=== PATIENT | female | born 1945 | race Caucasian/White ===

== ENCOUNTER 2018-05-16 18:35 | Emergency (ER) | payer OTHER ==
[~2018-05-16] VITALS: Ht 167.6 cm; Wt 59.0 kg
[~2018-05-16 18:35] MED LIST: ACTONEL 35 MG35 M1; ACTONEL PO; ACTONEL30 MG PO; APAP500 PO; ASPIRIN EC81 M1 PO; CALCIUM 500+D1 EAC3 PO; CALCIUM PO; CIPRO250 M1 PO; DETROL PO; DETROL1 MG PO; FISH OIL 500 M1 EAC1 PO; FLEXERIL PO; HYDROCODONE-APA1 TA1 PO; IBUPROFEN 800800 M1 PO; IBUPROFEN PO; MEDROL DOSPAK21 TAB PO; MULTIVITAMINS PO; NEURONTIN 300300 M1 PO; NORCO 10-325 T1 EACH PO; NORCO 5-325 TA1 EACH PO; NORCO 7.5-3251 EACH PO; NORFLEX100 MG PO; RELAFEN500 MG PO; STOOL SOFTENER100 MG PO; TRAMADOL 50 MG50 MG PO; VITAMIN E400 UNIT PO
[2018-05-16 20:02] VITALS: BP 151/69
== END 2018-05-16 20:03 | disposition home or self-care (01) ==
LOC: M.ERS 18:35
DX: S80.01XA Contusion of right knee, initial encounter (principal); M81.0 Age-related osteoporosis without current pathological fracture; Z96.649 Presence of unspecified artificial hip joint; W01.0XXA Fall on same level from slipping, tripping and stumbling without subsequent striking against object, initial encounter; Y93.89 Activity, other specified; Y92.094 Garage of other non-institutional residence as the place of occurrence of the external cause; Y99.8 Other external cause status

== ENCOUNTER 2018-06-28 07:55 | Inpatient (IN) | payer OTHER ==
[~2018-06-28] VITALS: Ht 167.6 cm; Wt 59.0 kg
[~2018-06-28 07:55] MED LIST changes: +CALCIUM 500+D1 EAC2 PO; -CALCIUM 500+D1 EAC3 PO
[2018-06-28 07:58] VITALS: BP 125/71
[2018-06-28] MEDS ORDERED: MELOXICAM7.5 MG PO (08:26)
[2018-06-28] MEDS ORDERED: PREDNISONE 20 M20 MG PO (08:27)
[2018-06-28 10:07] LABS: ABSOLUTE LYMPHOCYTES 1.3 thou/uL (0.8-5.3); ABSOLUTE MONOCYTES 0.8 thou/uL (0.0-1.2); ABSOLUTE NEUTROPHILS 8.6 thou/uL (1.6-8.1); BASOPHILS 0.1 %; EOSINOPHILS 0.1 %; HEMATOCRIT 37.4 % (37.0-47.0); HEMOGLOBIN 12.9 gm/dL (12.0-15.0); MCH 32.7 pg (26.0-34.0); MCHC 34.5 g/dL (28.0-37.0); MCV 94.7 fL (80.0-100.0); MPV 7.8 fl. (7.2-11.1); NUCLEATED RBCS 0 /100WBC; PLATELET COUNT* 178 thou/uL (150-400); POLYS 80.8 %; RBC 3.95 mil/uL (4.20-5.00); RDW-CV 13.3 % (10.5-14.5); WBC 10.7 thou/uL (4.0-11.0)
[2018-06-28 10:11] LABS: URINE BILIRUBIN NEGATIVE (Negative); URINE BLOOD NEGATIVE (Negative); URINE COLOR YELLOW; URINE GLUCOSE-RANDOM NEGATIVE (Negative); URINE KETONES NEGATIVE (Negative); URINE LEUKOCYTES-REFLEX NEGATIVE (Negative); URINE NITRITE-REFLEX NEGATIVE (Negative); URINE PROTEIN NEGATIVE (Negative); URINE UROBILINOGEN 0.2 E.U./dl (0.2-1.0)
[2018-06-28 10:12] LABS: URINE CLARITY CLEAR
[2018-06-28 10:12] LABS: CALCIUM 9.3 mg/dL (8.5-10.1); CREATININE 0.6 mg/dL (0.6-1.3); POTASSIUM 3.8 mmol/L (3.5-5.1)
[2018-06-28 10:16] LABS: ALBUMIN 3.6 g/dL (3.4-5.0); TOTAL BILIRUBIN 0.9 mg/dL (<0.1-1.0); TOTAL PROTEIN 7.7 g/dL (6.4-8.2)
[2018-06-28 11:21] VITALS: BP 152/68
[2018-06-28 12:02] VITALS: BP 164/77
[2018-06-28 15:38] LABS: APTT 24.2 Seconds (25.0-31.3); PROTIME 10.2 Seconds (9.20-11.50)
[2018-06-28 16:35] VITALS: BP 147/72
[2018-06-28 20:45] VITALS: BP 130/77
[2018-06-29 04:10] LABS: HEMATOCRIT 36.8 % (37.0-47.0); HEMOGLOBIN 12.7 gm/dL (12.0-15.0); MCH 32.9 pg (26.0-34.0); MCHC 34.4 g/dL (28.0-37.0); MCV 95.6 fL (80.0-100.0); MPV 7.9 fl. (7.2-11.1); RBC 3.85 mil/uL (4.20-5.00); RDW-CV 13.2 % (10.5-14.5); WBC 9.3 thou/uL (4.0-11.0)
[2018-06-29 04:36] LABS: CALCIUM 9.7 mg/dL (8.5-10.1); CREATININE 0.7 mg/dL (0.6-1.3); MAGNESIUM 2.1 mg/dL (1.8-2.4); POTASSIUM 4.9 mmol/L (3.5-5.1)
[2018-06-29 08:20] VITALS: BP 167/70
[2018-06-29 11:54] VITALS: BP 130/77
[2018-06-29 12:30] VITALS: BP 168/85
[2018-06-29 17:06] VITALS: BP 151/89
[2018-06-29 19:30] VITALS: BP 137/79
[2018-06-30 00:05] VITALS: BP 147/82
[2018-06-30 05:30] VITALS: BP 171/79
[2018-06-30 08:15] VITALS: BP 131/66
[2018-06-30] MEDS ORDERED: LIDOPATCH1 EACH TOP (08:46)
[2018-06-30] MEDS ORDERED: HYDROCODON-ACE1 EAC7 PO (08:46)
[2018-06-30] MEDS ORDERED: TRAMADOL 50 MG50 MG PO (08:46)
[2018-06-30 12:29] VITALS: BP 131/66
--- NOTE | 2018-06-30 14:57 | EKG ---
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1945 Requested By: Boom Freedman Order Number: [id number] MD: Olegario Lopez Measurements Intervals Fine Rate: 77 P: 31 MT: 144 QRS: 15 QRSD: 88 T: 31 QT: 379 QTc: 429 Interpretive Statements Sinus rhythm Minimal ST depression, anterolateral leads Compared to ECG 05/16/2013 08:16:32 Incomplete right bundle-branch block no longer present Electronically Signed On 06-30-2018 14:56:56 [employer]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
== END 2018-06-30 13:30 | disposition home health service (06) | DRG 516 ==
LOC: M.ERS 07:55 → M.TBA-ER 10:30 → M.ORTHSURG 10:30
PROVIDERS: Emergency Medicine Emergency Medical Services; Radiology Diagnostic Radiology; ADMIT Internal Medicine
PROC: 0QS03ZZ Reposition Lumbar Vertebra, Percutaneous Approach (ICD-10-PCS; principal; 2018-06-29)
PROC: 0QU03JZ Supplement Lumbar Vertebra with Synthetic Substitute, Percutaneous Approach (ICD-10-PCS; principal; 2018-06-29)
DX: M80.08XA Age-related osteoporosis with current pathological fracture, vertebra(e), initial encounter for fracture (principal); E87.1 Hypo-osmolality and hyponatremia; Z60.2 Problems related to living alone; Z96.649 Presence of unspecified artificial hip joint; Z79.899 Other long term (current) drug therapy

== ENCOUNTER 2018-07-31 12:13 | Outpatient (CLI) | payer OTHER ==
[~2018-07-31] VITALS: Ht 167.6 cm; Wt 59.0 kg
[~2018-07-31 12:13] MED LIST changes: +HYDROCODON-ACE1 EAC7 PO; +LIDOPATCH1 EACH TOP; +MELOXICAM7.5 MG PO; +PREDNISONE 20 M20 MG PO
[2018-07-31] MEDS ORDERED: NORCO 5-325 TA1 EACH PO (20:16)
[2018-07-31] MEDS ORDERED: ONDANSETRON HCL4 M2 PO (22:38)
[2018-07-31 22:45] VITALS: BP 122/65
== END 2018-07-31 22:45 | disposition home or self-care (01) ==
LOC: M.ERS 12:13 → M.RAD 12:13 → M.ERS 22:45
DX: M25.551 Pain in right hip (principal); S32.020A Wedge compression fracture of second lumbar vertebra, initial encounter for closed fracture; S32.040A Wedge compression fracture of fourth lumbar vertebra, initial encounter for closed fracture; S22.088A Other fracture of T11-T12 vertebra, initial encounter for closed fracture; X58.XXXA Exposure to other specified factors, initial encounter; Y93.89 Activity, other specified; Y92.89 Other specified places as the place of occurrence of the external cause; Y99.8 Other external cause status; M81.0 Age-related osteoporosis without current pathological fracture; Z96.612 Presence of left artificial shoulder joint; Z98.890 Other specified postprocedural states; Z96.641 Presence of right artificial hip joint; Z79.899 Other long term (current) drug therapy; Z79.891 Long term (current) use of opiate analgesic

== ENCOUNTER → 2018-08-02 | Outpatient (CLI) | payer OTHER ==
[~2018-08-02] VITALS: Ht 162.6 cm; Wt 59.0 kg
[~2018-08-02] MED LIST changes: +ONDANSETRON HCL4 M2 PO
[2018-08-02 11:17] VITALS: BP 122/67
== END ==
LOC: M.INT 09:50
DX: S22.080A Wedge compression fracture of T11-T12 vertebra, initial encounter for closed fracture (principal); S22.070A Wedge compression fracture of T9-T10 vertebra, initial encounter for closed fracture; S32.040A Wedge compression fracture of fourth lumbar vertebra, initial encounter for closed fracture; S80.00XA Contusion of unspecified knee, initial encounter; W19.XXXA Unspecified fall, initial encounter; Y93.89 Activity, other specified; Y92.89 Other specified places as the place of occurrence of the external cause; Y99.8 Other external cause status

== ENCOUNTER → 2018-08-08 | Outpatient (CLI) | payer OTHER ==
[2018-08-02 10:59] VITALS: BP 122/67
[~2018-08-08] VITALS: Ht 167.6 cm; Wt 59.0 kg
[2018-08-08 09:21] VITALS: BP 143/63
[2018-08-08 09:33] LABS: HEMATOCRIT 39.7 % (37.0-47.0); HEMOGLOBIN 13.5 gm/dL (12.0-15.0); MCH 31.8 pg (26.0-34.0); MCHC 34.1 g/dL (28.0-37.0); MCV 93.3 fL (80.0-100.0); MPV 8.1 fl. (7.2-11.1); RBC 4.25 mil/uL (4.20-5.00); RDW-CV 12.7 % (10.5-14.5); WBC 5.6 thou/uL (4.0-11.0)
[2018-08-08 09:41] LABS: APTT 26.7 Seconds (25.0-31.3); PROTIME 10.3 Seconds (9.20-11.50)
[2018-08-08 09:49] LABS: CALCIUM 9.6 mg/dL (8.5-10.1); CREATININE 0.8 mg/dL (0.6-1.3); POTASSIUM 3.6 mmol/L (3.5-5.1)
[2018-08-08 09:53] LABS: ALBUMIN 3.7 g/dL (3.4-5.0); TOTAL BILIRUBIN 0.6 mg/dL (<0.1-1.0); TOTAL PROTEIN 8.2 g/dL (6.4-8.2)
[2018-08-08 12:10] VITALS: BP 187/82
[2018-08-08 12:45] VITALS: BP 176/71
== END | disposition home or self-care (01) ==
LOC: M.INT 08:42
PROVIDERS: Radiology Diagnostic Radiology
DX: M80.08XA Age-related osteoporosis with current pathological fracture, vertebra(e), initial encounter for fracture (principal); M54.9 Dorsalgia, unspecified; Z98.890 Other specified postprocedural states; Z79.899 Other long term (current) drug therapy; Z79.891 Long term (current) use of opiate analgesic; Z96.612 Presence of left artificial shoulder joint; Z96.649 Presence of unspecified artificial hip joint

== ENCOUNTER → 2019-06-05 | Outpatient (CLI) | payer OTHER ==
[~2019-06-05] VITALS: Ht 167.6 cm; Wt 48.1 kg
[~2019-06-05] MED LIST changes: +CHILDREN'S ASPI81 M1 PO; +VITAMIN B-121000 MC2 SL
[2019-06-05 11:19] VITALS: BP 136/66
== END ==
LOC: M.INT 10:48
DX: M54.9 Dorsalgia, unspecified (principal); M48.55XA Collapsed vertebra, not elsewhere classified, thoracolumbar region, initial encounter for fracture; W19.XXXA Unspecified fall, initial encounter; Y93.89 Activity, other specified; Y92.89 Other specified places as the place of occurrence of the external cause; Y99.8 Other external cause status

== ENCOUNTER → 2019-06-12 | Outpatient (CLI) | payer OTHER ==
[~2019-06-12] VITALS: Ht 167.6 cm; Wt 48.1 kg
[2019-06-12 09:19] VITALS: BP 133/64
[2019-06-12 09:19] LABS: HEMATOCRIT 36.6 % (37.0-47.0); HEMOGLOBIN 12.5 gm/dL (12.0-15.0); MCH 30.7 pg (26.0-34.0); MCHC 34.3 g/dL (28.0-37.0); MCV 89.5 fL (80.0-100.0); MPV 7.7 fl. (7.2-11.1); RBC 4.09 mil/uL (4.20-5.00); RDW-CV 12.9 % (10.5-14.5); WBC 5.1 thou/uL (4.0-11.0)
[2019-06-12 09:28] LABS: CALCIUM 9.6 mg/dL (8.5-10.1); CREATININE 0.7 mg/dL (0.6-1.3); POTASSIUM 4.4 mmol/L (3.5-5.1)
[2019-06-12 09:33] LABS: ALBUMIN 4.1 g/dL (3.4-5.0); TOTAL BILIRUBIN 0.6 mg/dL (<0.1-1.0); TOTAL PROTEIN 7.9 g/dL (6.4-8.2)
[2019-06-12 11:25] VITALS: BP 141/61
[2019-06-12 12:07] VITALS: BP 132/74
[2019-06-12 13:38] VITALS: BP 135/75
== END | disposition home or self-care (01) ==
LOC: M.CT 06-05 12:55
PROVIDERS: Radiology Diagnostic Radiology
DX: M54.5 Low back pain (principal); S32.010A Wedge compression fracture of first lumbar vertebra, initial encounter for closed fracture; S22.080A Wedge compression fracture of T11-T12 vertebra, initial encounter for closed fracture; Z98.890 Other specified postprocedural states; Z96.612 Presence of left artificial shoulder joint; Z96.641 Presence of right artificial hip joint; Z79.82 Long term (current) use of aspirin; Z79.899 Other long term (current) drug therapy; X58.XXXA Exposure to other specified factors, initial encounter; Y93.89 Activity, other specified; Y92.89 Other specified places as the place of occurrence of the external cause; Y99.8 Other external cause status

== ENCOUNTER → 2020-04-08 | Outpatient (CLI) | payer OTHER ==
[2020-04-08 13:07] VITALS: BP 113/79
== END ==
LOC: M.INT 12:46
PROVIDERS: ATTEND Family Medicine
DX: S32.050A Wedge compression fracture of fifth lumbar vertebra, initial encounter for closed fracture (principal); M25.552 Pain in left hip; M19.90 Unspecified osteoarthritis, unspecified site; M81.0 Age-related osteoporosis without current pathological fracture; N18.9 Chronic kidney disease, unspecified; Z79.899 Other long term (current) drug therapy; Z79.82 Long term (current) use of aspirin; Z98.890 Other specified postprocedural states; Z88.1 Allergy status to other antibiotic agents; Z88.8 Allergy status to other drugs, medicaments and biological substances; Z82.49 Family history of ischemic heart disease and other diseases of the circulatory system; X58.XXXA Exposure to other specified factors, initial encounter; Y93.89 Activity, other specified; Y92.89 Other specified places as the place of occurrence of the external cause; Y99.8 Other external cause status

== ENCOUNTER → 2020-04-22 | Outpatient (CLI) | payer OTHER ==
[~2020-04-22] MED LIST changes: +ALEVE220 M1 PO; +REMICADE 1100 MG/VIA IM; +ROBAXIN 750 MG750 MG PO
== END ==
LOC: M.PC 09:09
PROVIDERS: ATTEND Physical Medicine & Rehabilitation
DX: M47.816 Spondylosis without myelopathy or radiculopathy, lumbar region (principal); M51.36 Other intervertebral disc degeneration, lumbar region; M53.3 Sacrococcygeal disorders, not elsewhere classified

== ENCOUNTER → 2020-04-29 | Outpatient (CLI) | payer OTHER | END | disposition home or self-care (01) | LOC: M.PC 08:51 | PROVIDERS: ATTEND Physical Medicine & Rehabilitation | DX: M53.3 Sacrococcygeal disorders, not elsewhere classified (principal); M47.816 Spondylosis without myelopathy or radiculopathy, lumbar region; N18.9 Chronic kidney disease, unspecified; M81.0 Age-related osteoporosis without current pathological fracture; Z98.890 Other specified postprocedural states; Z79.899 Other long term (current) drug therapy ==